=== PATIENT | female | born 1990 | race Caucasian/White ===

== ENCOUNTER 2018-01-08 17:52 | Inpatient (IN) | payer OTHER, BC ==
[2018-01-08] MEDS: LACTATED RINGER'S 1,000 ML IV ×2 (18:26→20:27)
[2018-01-08] MEDS ORDERED: MISOPROSTOL 200 MCG TAB PR ×2 (18:30→23:30)
[2018-01-08] MEDS ORDERED: CEFAZOLIN 2 GM/50 ML (PMX) 50 ML IV (18:30)
[2018-01-08] MEDS ORDERED: METHYLERGONOVINE 0.2 MG INJ IM ×2 (18:30→23:30)
[2018-01-08] MEDS ORDERED: OXYTOCIN 30 UNITS/LR 500 ML IV ×3 (18:30→23:30)
[2018-01-08] MEDS ORDERED: CARBOPROST 250 MCG INJ IM ×2 (18:30→23:30)
[2018-01-08 18:45] LABS: ADD MAN DIFF? NO
[2018-01-08 18:46] LABS: ABNORMAL IP MESSAGE 1; BASOPHILS % 0.3 % (0.0-2.0); EOSINOPHILS % 0.3 % (0.0-7.0); HEMATOCRIT 28.3 % (37.0-47.0); LYMPHOCYTES # 2.5 10^3/ul (0.8-2.9); LYMPHOCYTES % 31.3 % (15.0-51.0); MEAN CORPUSCULAR HEMOGLOBIN 19.1 pg (29.0-33.0); MEAN CORPUSCULAR HGB CONC 28.3 g/dl (32.0-37.0); MEAN CORPUSCULAR VOLUME 67.7 fl (82.0-101.0); MONOCYTE # 0.4 10^3/ul (0.3-0.9); MONOCYTES % 5.3 % (0.0-11.0); NEUTROPHILS % 62.3 % (39.0-77.0); NUCLEATED RED BLOOD CELLS% 0.4 /100WBC (0.0-0.0); PLATELET COUNT 219 10^3/UL (140-415); RED BLOOD COUNT 4.18 10^6/ul (4.20-5.40); RED CELL DISTRIBUTION WIDTH 17.5 % (11.5-14.5)
[2018-01-08 18:48] LABS: POSITIVE DIFF @See below
[2018-01-08 19:01] LABS: INR 0.97
[2018-01-08 19:02] LABS: PARTIAL THROMBOPLASTIN TIME 25.5 Sec (23.0-35.0)
[2018-01-08 19:40] LABS: HEPATITIS B SURFACE ANTIGEN NEGATIVE (NEGATIVE)
[2018-01-08] MEDS ORDERED: OXYTOCIN 10 UNIT INJ (19:41)
[2018-01-08] MEDS ORDERED: morphine SULFATE/PF (10 MG/10 ML) INJ (19:41)
[2018-01-08] MEDS ORDERED: BUPIVACAINE 0.75%/DEXT (SPINAL) 2 ML INJ (19:42)
[2018-01-08] MEDS ORDERED: HYDROmorphONE 0.5 MG/0.5 ML SYG IV ×2 (22:00)
[2018-01-08] MEDS ORDERED: ONDANSETRON 4 MG INJ IV ×2 (22:00)
[2018-01-08] MEDS ORDERED: KETOROLAC 30 MG INJ IV (22:00)
[2018-01-08] MEDS ORDERED: HYDROmorphONE 1 MG/5 ML IV SYRINGE IV ×3 (22:00)
[2018-01-08] MEDS ORDERED: ZOLPIDEM 5 MG TAB PO (22:00)
[2018-01-08] MEDS ORDERED: DIPHENHYDRAMINE 50 MG INJ IV ×2 (22:00)
[2018-01-08] MEDS ORDERED: NALOXONE (0.4 MG/ML) INJ IV (22:00)
[2018-01-08] MEDS ORDERED: FENTAnyl 50 MCG/ML VIAL IV (22:00)
[2018-01-08] MEDS: OXYTOCIN 30 UNITS/LR 500 ML IV (23:16)
[2018-01-08] MEDS: CEFAZOLIN 2 GM/50 ML (PMX) 50 ML IV (23:30)
[2018-01-09] MEDS: FENTAnyl 50 MCG/ML VIAL IV ×2 (00:12→00:29)
[2018-01-09] MEDS: KETOROLAC 30 MG INJ IV ×4 (01:27→21:04)
[2018-01-09] MEDS: IBUPROFEN 600 MG TAB PO ×4 (02:26→14:57)
[2018-01-09] MEDS: OXYTOCIN 30 UNITS/LR 500 ML IV (04:49)
[2018-01-09] MEDS: CEFAZOLIN 2 GM/50 ML (PMX) 50 ML IVPB ×3 (05:43→22:02)
[2018-01-09 08:51] LABS: ABNORMAL IP MESSAGE 1; HEMATOCRIT 24.8 % (37.0-47.0); MEAN CORPUSCULAR HGB CONC 27.8 g/dl (32.0-37.0); MEAN CORPUSCULAR VOLUME 68.1 fl (82.0-101.0); MEAN PLATELET VOLUME 10.6 fl (7.4-10.4); PLATELET COUNT 176 10^3/UL (140-415); RED BLOOD COUNT 3.64 10^6/ul (4.20-5.40); RED CELL DISTRIBUTION WIDTH 17.4 % (11.5-14.5)
[2018-01-09 08:51] LABS: WHITE BLOOD COUNT 9.7 10^3/ul (4.8-10.8)
[2018-01-09] MEDS: SENNA/DOCUSATE NA (8.6MG/50MG) TAB PO ×2 (09:00→21:03)
[2018-01-09 09:02] LABS: POSITIVE DIFF @See below
[2018-01-09 09:05] LABS: ADD MAN DIFF? YES; HEMOGLOBIN 6.9 g/dl (12.0-16.0)
[2018-01-09 10:46] LABS: ANISOCYTOSIS 2+ (0-0); BASOPHIL #M 0.1 10^3/ul (0.0-0.0); BASOPHILS % (M) 2 % (0-2); GIANT THROMBO% (M) 4 % (0-0); LYMPHOCYTES #M 1.2 10^3/ul (0.8-2.9); LYMPHOCYTES % (M) 13 % (15-51); MICROCYTOSIS 1+ (0-0); PLATELET ESTIMATE DECREASED; POIKILOCYTOSIS 1+ (0-0); SEGMENTED NEUTROPHILS (M) % 85 % (39-77); SMUDGE%M 31 % (0-0)
[2018-01-09] MEDS: FERROUS SULFATE (EC) 325 MG TAB PO ×2 (12:43→21:03)
[2018-01-09] MEDS: LACTATED RINGER'S 1,000 ML IV (15:05)
[2018-01-09 15:06] LABS: RAPID PLASMA REAGIN NONREACTIVE (NR)
[2018-01-10] MEDS: OXYCODONE/ACETAMINOPHEN (5/325) TAB PO ×4 (01:23→20:06)
[2018-01-10] MEDS: LACTATED RINGER'S 1,000 ML IV ×2 (05:24→07:00)
[2018-01-10] MEDS: IBUPROFEN 600 MG TAB PO ×4 (06:01→17:42)
[2018-01-10 08:40] LABS: ADD MAN DIFF? NO
[2018-01-10 08:52] LABS: ABNORMAL IP MESSAGE 1; BASOPHILS % 0.2 % (0.0-2.0); EOSINOPHILS % 0.4 % (0.0-7.0); HEMATOCRIT 25.6 % (37.0-47.0); HEMOGLOBIN 7.1 g/dl (12.0-16.0); LYMPHOCYTES # 2.2 10^3/ul (0.8-2.9); LYMPHOCYTES % 23.4 % (15.0-51.0); MEAN CORPUSCULAR HEMOGLOBIN 19.2 pg (29.0-33.0); MEAN CORPUSCULAR HGB CONC 27.7 g/dl (32.0-37.0); MEAN CORPUSCULAR VOLUME 69.4 fl (82.0-101.0); MEAN PLATELET VOLUME 11.1 fl (7.4-10.4); MONOCYTE # 0.6 10^3/ul (0.3-0.9); MONOCYTES % 6.2 % (0.0-11.0); NEUTROPHIL # 6.6 10^3/ul (1.6-7.5); NEUTROPHILS % 69.3 % (39.0-77.0); PLATELET COUNT 190 10^3/UL (140-415); RED BLOOD COUNT 3.69 10^6/ul (4.20-5.40); RED CELL DISTRIBUTION WIDTH 17.7 % (11.5-14.5)
[2018-01-10 08:52] LABS: WHITE BLOOD COUNT 9.6 10^3/ul (4.8-10.8)
[2018-01-10 09:09] LABS: POSITIVE DIFF @See below
[2018-01-10] MEDS: FERROUS SULFATE (EC) 325 MG TAB PO ×3 (09:42→20:06)
[2018-01-10] MEDS: SENNA/DOCUSATE NA (8.6MG/50MG) TAB PO ×2 (09:42→20:06)
[2018-01-11] MEDS: IBUPROFEN 600 MG TAB PO ×3 (05:44→11:58)
[2018-01-11] MEDS: SENNA/DOCUSATE NA (8.6MG/50MG) TAB PO (08:39)
[2018-01-11] MEDS: OXYCODONE/ACETAMINOPHEN (5/325) TAB PO (08:40)
[2018-01-11] MEDS: FERROUS SULFATE (EC) 325 MG TAB PO ×2 (08:40→13:45)
[2018-01-11] MEDS: DIPHTH/TET/ACEL PERTUSS (ADULT) 0.5 ML VIAL IM* (12:17)
== END 2018-01-11 14:20 | disposition home or self-care (01) | DRG 766 ==
LOC: PP1 01-09 01:17 → L-D 17:52
PROVIDERS: Obstetrics & Gynecology
PROC: 10D00Z1 Extraction of Products of Conception, Low, Open Approach (ICD-10-PCS; principal; 2018-01-08 19:30)
DX: O32.1XX0 Maternal care for breech presentation, not applicable or unspecified (principal); O34.219 Maternal care for unspecified type scar from previous cesarean delivery; Z3A.39 39 weeks gestation of pregnancy; Z37.0 Single live birth; Z23 Encounter for immunization
CPT/HCPCS: 85025; 85610; 85730; 86592; 86850; 86900; 86901; 86920; 87340; 90715; 93005; 99464